=== PATIENT | male | born 1985 ===

== ENCOUNTER 2017-12-19 21:01 | Emergency (ER) | payer BC ==
[2017-12-19 21:09] VITALS: BP 138/84; PULSE 73; RESP 18; TEMP 97.9; O2SAT 100
--- NOTE | 2017-12-19 21:30 | ED PDOC ---
HPI: Dental Pain/Injury Time Seen by Provider: 12/19/17 21:24 Chief Complaint (Nursing): Dental Pain Chief Complaint (Provider): headache History Per: Patient History/Exam Limitations: no limitations Onset/Duration Of Symptoms: Days (x4) Additional Complaint(s): Rg Andujar, a 32 year old male with no significant past medical history, presents to the emergency department with dental pain onset 4 days ago. Patient reports seeing his dentist who took xrays and said everything was normal and to follow up in two weeks. He states that he has an increasing left sided headache and left sided facial pain, and took 2 tabs of Tylenol this morning and 2 more at 19:30. Patient denies and fever or chills. No further medical complaints. Past Medical History Reviewed: Historical Data, Nursing Documentation, Vital Signs Vital Signs: Last Vital Signs Temp 97.9 F 12/19/17 21:06 Pulse 73 12/19/17 21:06 Resp 18 12/19/17 21:06 BP 138/84 12/19/17 21:06 Pulse Ox 100 12/19/17 21:06 - Family History Family History: States: Unknown Family Hx - Home Medications Home Medications: Ambulatory Orders Medication Instructions Recorded Naproxen 375 mg PO Q8 PRN #21 tablet 12/19/17 Penicillin VK [Penicillin VK Tab] 1 tab PO QID #40 tab 12/19/17 - Allergies Allergies/Adverse Reactions: Allergies Allergy/AdvReac Type Severity Reaction Status Date / Time No Known Allergies Allergy Verified 12/19/17 21:06 Review of Systems ROS Statement: Except As Marked, All Systems Reviewed And Found Negative Constitutional: Negative for: Fever, Chills ENT: Positive for: Mouth Pain Neurological: Positive for: Headache (left sided), Other (left sided facial pain ) Physical Exam - Reviewed Nursing Documentation Reviewed: Yes Vital Signs Reviewed: Yes - Physical Exam Appears: Positive for: Well, Non-toxic, No Acute Distress Head Exam: Positive for: ATRAUMATIC, NORMAL INSPECTION, NORMOCEPHALIC ENT: Positive for: Other (poor dentition, no obvious abscess left upper maxillary premolar) Cardiovascular/Chest: Positive for: Regular Rate, Rhythm Respiratory: Positive for: Normal Breath Sounds. Negative for: Respiratory Distress - ECG O2 Sat by Pulse Oximetry: 100 (RA) Pulse Ox Interpretation: Normal - Progress ED Course And Treament: TORADOL 30 MG IM X 1 DOSE Medical Decision Making Medical Decision Making: Time: 21:24 Initial Impression: headache, dental pain Initial Plan: --Toradol 30 mg IM Scribe Attestation: Documented by Aracely Dunn, acting as a scribe for Tere Roman PA-C. Provider Scribe Attestation: All medical record entries made by the Scribe were at my direction and personally dictated by me. I have reviewed the chart and agree that the record accurately reflects my personal performance of the history, physical exam, medical decision making, and the department course for this patient. I have also personally directed, reviewed, and agree with the discharge instructions and disposition. Disposition - Clinical Impression Clinical Impression: Pain, dental - Patient ED Disposition Is Patient to be Admitted: No - Disposition Disposition: Routine/Home Disposition Time: 21:40 Condition: FAIR Prescriptions: Naproxen 375 mg PO Q8 PRN #21 tablet PRN Reason: Pain, Mild (1-3) Penicillin VK [Penicillin VK Tab] 1 tab PO QID #40 tab Instructions: Dental Pain
== END 2017-12-19 22:10 | disposition home or self-care (01) ==
LOC: H.ER 21:01
DX: K08.89 Other specified disorders of teeth and supporting structures (principal)
CPT/HCPCS: 96372; 99283; J1885